=== PATIENT | male | born 1970 | race Caucasian/White ===

== ENCOUNTER 2025-04-15 11:48 | Emergency (ER) | payer SELFPAY ==
[~2025-04-15] VITALS: Ht 190.5 cm; Wt 68.2 kg
[2025-04-15 11:53] VITALS: BP 150/87; PULSE 68; RESP 16; TEMP 98; O2SAT 100
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
== END 2025-04-15 14:02 | disposition home or self-care (01) ==
LOC: ER 11:48
DX: S16.1XXA Strain of muscle, fascia and tendon at neck level, initial encounter (principal); S29.012A Strain of muscle and tendon of back wall of thorax, initial encounter; V43.52XA Car driver injured in collision with other type car in traffic accident, initial encounter; Y93.89 Activity, other specified; Y92.89 Other specified places as the place of occurrence of the external cause; Y99.8 Other external cause status
CPT/HCPCS: 72040; 73010; 99284